=== PATIENT | male | born 1980 | race Caucasian/White ===

== ENCOUNTER 2016-07-06 07:49 | Emergency (ER) | payer OTHER ==
[~2016-07-06] VITALS: Ht 170.2 cm; Wt 95.0 kg
[~2016-07-06 07:49] MED LIST: AVELOX400 MG GT; Augmentin GT; BENADRYL A12.5 MG/5 PO; CHILDREN'S ALLERGY PO; CONSTULOSE10 GM/15 M PO; DEPAKENE250 MG/5 M G-TUBE; DEPAKENE250 MG/5 M GT; DEPAKENE250 MG/5 M PO; FLONASE16 G1 BOTH NARES; LEVAQUIN750 MG GT; LEVAQUIN750 MG PO; LEVOCETIRI2.5 MG/5 M PO; SODIUM CHLORIDE1 G1 PO; TEGRETOL100 MG/5 M PO; TOPAMAX100 MG G-TUBE; TOPAMAX50 MG PO; TRANXENE T-TAB7.5 MG PO; TYLENOL650 MG/20. GT; ZITHROMAX200 MG/5 M GT; ZITHROMAX200 MG/5 M PO; [UNRECOGNIZED DRUG - OTHER] PO
[2016-07-06 09:29] LABS: HEMATOCRIT 40.8 % (38.0-50.0); MCH 33.3 PG (29.0-34.0); MCHC 33.6 G/DL (30.0-36.0); MEAN PLAT.VOLUME 9.5 uM^3 (9.0-12.4); PLATELET COUNT 147 K/uL (156-360); RBC DIS.WIDTH-SD 47.5 % (39-53); RED BLOOD COUNT 4.12 M/uL (4.00-5.50); WHITE BLOOD COUNT 9.4 K/uL (4.1-10.2)
[2016-07-06 09:38] LABS: CHLORIDE 100 mEq/L (99-109); POTASSIUM 4.4 mEq/L (3.7-5.4); SODIUM 132 mEq/L (136-147)
[2016-07-06 09:40] LABS: GLUCOSE 114 mg/dL (70-99)
[2016-07-06 09:42] LABS: ANION GAP 8 MEQ/L (2-14); TOTAL BILIRUBIN 0.4 mg/dL (0.0-1.0)
[2016-07-06 09:44] LABS: ALKALINE PHOSPHATASE 96 IU/L (3-129); GFR ESTIMATE (CALCULATED) > 59 mL/min/
[2016-07-06 09:45] LABS: UREA NITROGEN (BUN) 11 mg/dL (9-23)
[2016-07-06] MEDS ORDERED: ZITHROMAX200 MG/5 M PO (10:17)
[2016-07-06 10:27] VITALS: BP 127/96
== END 2016-07-06 10:28 | disposition home or self-care (01) ==
LOC: EME 07:49
PROVIDERS: Nurse Practitioner Family
DX: J06.9 Acute upper respiratory infection, unspecified (principal); F79 Unspecified intellectual disabilities; R56.9 Unspecified convulsions; Z87.01 Personal history of pneumonia (recurrent)
CPT/HCPCS: 71020; 80053; 85027

== ENCOUNTER 2017-09-17 06:59 | Emergency (ER) | payer OTHER ==
[~2017-09-17] VITALS: Ht 170.2 cm; Wt 91.0 kg
[2017-09-17] MEDS ORDERED: LIDODERM 5% P1 PATCH TD (09:13)
[2017-09-17 09:24] VITALS: BP 119/70
== END 2017-09-17 09:27 | disposition home or self-care (01) ==
LOC: EME 06:59
DX: M94.0 Chondrocostal junction syndrome [Tietze] (principal); M79.1 Myalgia; H00.011 Hordeolum externum right upper eyelid; R56.9 Unspecified convulsions; F79 Unspecified intellectual disabilities; Z88.5 Allergy status to narcotic agent
CPT/HCPCS: 71045; 99281; 99284

== ENCOUNTER 2017-11-25 23:18 | Emergency (ER) | payer OTHER ==
[~2017-11-25] VITALS: Ht 170.2 cm; Wt 90.1 kg
[~2017-11-25 23:18] MED LIST changes: +LIDODERM 5% P1 PATCH TD
[2017-11-26 01:54] LABS: INTER. NORMALIZED RATIO 1.1
[2017-11-26 01:56] LABS: PTT 24.8 SEC (25-37)
[2017-11-26 02:00] LABS: CHLORIDE 97 mEq/L (99-109); POTASSIUM 4.5 mEq/L (3.7-5.4); SODIUM 130 mEq/L (136-147)
[2017-11-26 02:01] LABS: GLUCOSE 86 mg/dL (70-99)
[2017-11-26 02:03] LABS: APPEARANCE CLEAR ((CLEAR)); BILIRUBIN SMALL; BLOOD SMALL; COLOR AMBER ((YELLOW)); GLUCOSE (STRIP) NEGATIVE; KETONES NEGATIVE; LEUKOCYTES NEGATIVE; NITRITE NEGATIVE; PROTEIN (STRIP) 30
[2017-11-26 02:05] LABS: CREATININE 0.7 mg/dL (0.6-1.3); GFR ESTIMATE (CALCULATED) > 59 mL/min/ (58.99-99999)
[2017-11-26 02:05] LABS: BACTERIA RARE /HPF; EPITHELIAL CELLS RARE /HPF; MUCUS 1+ /LPF; RED BLOOD CELLS 15-20 /HPF (0-5); UCUL ADDED? NO; WHITE BLOOD CELLS 0-5 /HPF (0-5)
[2017-11-26 02:06] LABS: UREA NITROGEN (BUN) 11 mg/dL (9-23)
[2017-11-26 02:30] LABS: BASOPHIL (%) 0.1 % (0-1); EOSINOPHIL (%) 0.1 % (0-5); HEMATOCRIT 38.4 % (38.0-50.0); HEMOGLOBIN 13.3 G/DL (12.5-16.6); IMMATURE GRANULOCYTE (%) 0.5 % (0.0-0.7); LYMPHOCYTE (%) 37.1 % (15-42); LYMPHOCYTE COUNT 3.5 K/uL (1.0-2.8); MCH 34.2 PG (29.0-34.0); MCHC 34.6 G/DL (30.0-36.0); MCV 98.7 FL (86-99); MONOCYTE (%) 17.4 % (3-12); MONOCYTE COUNT 1.6 K/uL (0-0.8); NEUTROPHIL (%) 44.8 % (45-76); NEUTROPHIL COUNT 4.2 K/uL (1.8-6.4); NRBC (%) 0.4 /100 WBC (0-0); PLATELET COUNT 139 K/uL (156-360); RBC DIS.WIDTH-CV 13.1 % (11.8-14.6); RBC DIS.WIDTH-SD 47.3 % (39-53); RED BLOOD COUNT 3.89 M/uL (4.00-5.50); WHITE BLOOD COUNT 9.3 K/uL (4.1-10.2)
[2017-11-26] MEDS ORDERED: ZITHROMAX200 MG/5 M PO (03:41)
[2017-11-26 04:17] VITALS: BP 99/68
== END 2017-11-26 04:19 | disposition home or self-care (01) ==
LOC: EME 23:18
PROVIDERS: Emergency Medicine
DX: R05 Cough (principal); R56.9 Unspecified convulsions; G31.84 Mild cognitive impairment of uncertain or unknown etiology; Z93.1 Gastrostomy status; Z87.01 Personal history of pneumonia (recurrent); Z90.79 Acquired absence of other genital organ(s); Z88.5 Allergy status to narcotic agent
CPT/HCPCS: 71045; 80048; 81003; 82948; 85025; 85025 GA; 85610; 85730; 87040; 99281; 99285